=== PATIENT | female | born 1970 | race Caucasian/White ===

== ENCOUNTER → 2023-08-07 18:44 | Outpatient (REF) | payer OTHER, SELFPAY | LOC: WDC 18:44 | PROVIDERS: ATTENDING PHYSICIAN Advanced Practice Midwife; FAMILY PHYSICIAN Nurse Practitioner Family | DX: Z12.31 Encounter for screening mammogram for malignant neoplasm of breast (principal) | CPT/HCPCS: 77063; 77067 ==

== ENCOUNTER → 2024-01-30 06:18 | Day surgery (SDC) | payer OTHER, SELFPAY | LOC: GI 06:18 | PROVIDERS: ATTENDING PHYSICIAN Internal Medicine | DX: Z12.11 Encounter for screening for malignant neoplasm of colon (principal); K57.30 Diverticulosis of large intestine without perforation or abscess without bleeding | CPT/HCPCS: G0121 ==

== ENCOUNTER → 2024-05-18 06:19 | Day surgery (SDC) | payer OTHER, SELFPAY | LOC: GI 06:19 | PROVIDERS: ATTENDING PHYSICIAN Internal Medicine | DX: K22.2 Esophageal obstruction (principal); K31.89 Other diseases of stomach and duodenum; R13.10 Dysphagia, unspecified | CPT/HCPCS: 43249; 43239; 88305; 88342 ==

== ENCOUNTER → 2024-09-02 17:27 | Outpatient (REF) | payer OTHER, SELFPAY | LOC: WDC 17:27 | PROVIDERS: ATTENDING PHYSICIAN Emergency Medicine | DX: Z00.00 Encounter for general adult medical examination without abnormal findings (principal); Z12.31 Encounter for screening mammogram for malignant neoplasm of breast | CPT/HCPCS: 77063; 77067 ==

== ENCOUNTER 2024-10-13 18:35 | Emergency (ER) | payer OTHER, SELFPAY ==
[2024-10-13] VITALS (21 sets, daily range): BP systolic 117–181; BP diastolic 63–105; BMI 34.5
[2024-10-13 19:18] LABS: % Basophils 0.5 % (0-2); % Immature Granulocytes 0.2 % (0-0.5); % Lymphocytes 40.9 % (20.5-51.1); % Monocytes 7.4 % (1.7-9.3); Absolute Eosinophils 0.7 10^3/uL (0-0.7); Absolute Lymphocytes 2.5 10^3/uL (1.2-3.4); Absolute Monocytes 0.5 10^3/uL (0.1-0.6); Absolute Neutrophils 2.4 10^3/uL (1.4-6.5); Hemoglobin 13.4 g/dL (12.0-16.0); Mean Corp Hgb Conc. 34.4 g/dL (33.0-37.0); Mean Corpuscular Volume 87.2 fL (81.0-99.0); Mean Platelet Volume 10.4 fL (7.4-10.4); Nucleated Red Blood Cells % 0 %; Platelet Count 214 10^3/uL (130-400); Red Blood Cell Count 4.47 10^6/uL (4.20-5.40); Red Cell Dist. Width 12.8 % (11.5-14.5); White Blood Cell Count 6.1 10^3/uL (4.8-10.8)
[2024-10-13 19:45] LABS: ALT (SGPT) 33 U/L (0-35); AST (SGOT) 26 U/L (14-36); Albumin 5.1 g/dl (3.5-5.0); Alkaline Phosphatase 97 U/L (38-126); Blood Urea Nitrogen 19 mg/dl (7-17); Calcium 9.9 mg/dl (8.4-10.2); Carbon Dioxide 27 mmol/L (22-30); Chloride 105 mmol/L (98-107); Estimated Creatinine Clearance 101 ml/min; Glucose 122 mg/dl (70-99); Potassium 3.8 mmol/L (3.5-5.1); Sodium 142 mmol/L (135-145); Total Bilirubin 0.6 mg/dl (0.2-1.3); Total Protein 7.6 g/dl (6.3-8.2); eGFR > 60.00
--- NOTE | 2024-10-13 19:56 | ED.GENMED ---
History of Present Illness
General
Chief Complaint: Heart Rate Problem
Source: patient and spouse
Exam Limitations: none
Time Seen by Provider: 10/13/24 18:54
Nursing documentation reviewed up to this point in time: agreed with
History of Present Illness
History of Present Illness:
54-year-old female with past medical history of asthma who presents to the emergency room for evaluation of palpitations. Patient reports that she was doing some housework about an hour prior to arrival when she had onset of palpitations. She says
that she felt her heart racing and checked her pulse and it was apparently 190. She said she felt mildly dizzy but denies any chest pain, shortness of breath. Came to the emergency room for evaluation. She denies any history of heart disease; EKG
on arrival appears to show atrial flutter, patient denies history of atrial fibrillation/atrial flutter. She denies similar symptoms in the past.
Past History
Past History
ED Past Medical History: Asthma and Psychiatric (Anxiety)
ED Past Surgical History: Orthopedic
Social History
Tobacco: Former smoker
Alcohol: None
Drug: None
Living: with family
Employment: Employed
Family History
Family History: Other (no significant)
Review of Systems
Review of Systems
All Other Systems: ROS reviewed and negative except as documented in HPI and ROS
Constitutional: Denies fever
Respiratory: Denies cough or trouble breathing
Cardiac: Reports palpitations; Denies chest pain
ABD/GI: Denies abdominal pain, nausea, vomiting or diarrhea
: Denies flank pain
Musculoskeletal: Denies edema, neck pain or back pain
Neurological: Denies headache
Phy Exam
Physical Exam
Physical Exam:
General: Awake, alert, no acute distress
Head: Normocephalic, atraumatic
Eyes: Conjunctiva normal, pupils equal round and reactive to light bilaterally
Throat: Airway intact, handling secretions
Neck: Trachea midline, no JVD
Lungs: Clear to auscultation bilaterally, no wheezing, rales, rhonchi
Heart: Tachycardia with ostensibly regular rhythm, no murmurs, gallops, or rubs appreciated
Abd: Soft, non distended, nontender
Neuro: No gross deficits
Skin: no rash
Extremities: No edema in extremities, equal pulses in all extremities
Scores
Heart Failure Risk
Heart Failure Risk Score: Not Applicable
Heart Score for Chest Pain Patients
STEMI patient?: Not applicable
Withdrawal Assessment of Alcohol
Withdrawal Assessment Completed?: Not applicable
Course
Orders/Labs/Results
Orders:
Orders
10/13/24 18:37
EKG [Electrocardiogram (*1)] Urgent
Reason for Study: Tachycardia
EKG- Treatment ONCE
10/13/24 19:06
Complete Blood Count/With Diff Urgent
Comprehensive Metabolic Panel Urgent
TSH Reflex To Free T4 Urgent
10/13/24 19:19
Propofol [Diprivan] 20 ml .ROUTE .STK-MED
10/13/24 19:36
ECG [Electrocardiogram (*1)] Urgent
Reason for Study: Bradycardia / Tachycardia
Cardiology Consult: Unknown
EKG- Treatment ONCE
10/13/24 19:49
Metoprolol [Lopressor] 5 mg IV NOW STA
10/13/24 19:50
Troponin I Urgent
10/13/24 20:16
Apixaban [Eliquis] 5 mg PO ONCE ONE
Abnormal Lab Results
10/13/24
19:06
Neutrophils % 39.0 L %
(42.2-75.2)
Eosinophils % 12.0 H %
(0-6)
BUN 19 H mg/dl
(7-17)
Glucose 122 H mg/dl
(70-99)
Albumin 5.1 H g/dl
(3.5-5.0)
10/13/24 19:06
10/13/24 19:06
Vital Signs
Initial and Last Documented VS:
Initial Vital Signs
Temp Pulse Resp BP Pulse Ox
36.4 C 143 18 181/103 100
10/13/24 18:39 10/13/24 18:39 10/13/24 18:39 10/13/24 18:39 10/13/24 18:39
Last Documented Vital Signs
Temp Pulse Resp BP Pulse Ox
37.4 C 95 20 133/78 98
10/13/24 20:00 10/13/24 21:12 10/13/24 21:12 10/13/24 21:12 10/13/24 21:12
Procedures
Cardioversion
Indication:: Other (atrial flutter)
Performed by:: Zurdo Amezquita MD
Synchronized?: Yes
Energy Used: 200 joules
Number of attempts: 1
Successful?: Yes
ASA Risk Score: Class II
Any reaction or bad outcome to prior sedation/anesthesia?: No history of a reaction
Sedation level to be attained: moderate
Chart and allergies reviewed: Yes
Patient reassessed prior to sedation: Yes
Time out completed at (validating right patient & procedure): 19:25
History of difficult intubation: No
Airway free of obstruction: Yes
Patient has a gag reflex: Yes
Patient is able to open mouth: Yes
Patient has no dentures: Yes
Patient has no loose teeth: Yes
Medication administered by Provider during Moderate Sedation: IV Propofol (mg)
Total dose administered: 180
Time drug administered: 19:25
Start Time: 19:25
Stop Time: 19:40
MDM/Problems Addressed
Differential Diagnosis Includes:
Atrial fibrillation, atrial flutter, SVT
MDM/Problems Addressed:
54-year-old female presents with palpitations and tachycardia that started about an hour prior to arrival; no history of similar, denies cardiac history. Arrives to us hypertensive, tachycardic. EKG on arrival shows atrial flutter with 2:1
conduction. Brought back to a room and IV placed labs sent off including a CBC and a CMP, troponin, thyroid studies. Given unclear onset of symptoms patient would be reasonable candidate for elective ED cardioversion�will plan to discuss with
cardiology.
Shortly after initial assessment I was called into the room because patient went into a marked tachycardia with heart rate of 260. Monitor showing what appears to be atrial flutter with one-to-one conduction. Pads applied; discussed with patient
and her . Blood pressure normal but she is quite symptomatic. Decision made to proceed with elective ED cardioversion as documented in procedure note. While equipment was being prepared patient's heart rate returned to 150, a flutter with
2-1 conduction on the monitor. Patient was successfully cardioverted as documented in procedure note. Postprocedural EKG confirms sinus rhythm. Will plan to discuss events with cardiology.
Reviewed EKG and rhythm strips from above episode with cardiology. After review of rhythm strip, consistent with atrial flutter with one-to-one conduction per cardiology. Reasonable to dose with IV Lopressor, initiate anticoagulation and started
on Toprol-XL. If labs including troponin normal reasonable to discharge and follow-up expeditiously as an outpatient. I did have a long discussion with patient�I offered her to be admitted for observation after this episode but she feels
comfortable with outpatient follow-up plan if able.
Labs reviewed: CBC unremarkable, CMP no clinically significant abnormalities. Troponin negative. Thyroid studies normal. Patient remains in sinus rhythm, normotensive, normal heart rate. She is asymptomatic since she has been cardioverted.
Continue to monitor after sedation but if she remains well-appearing with stable vitals plan for discharge as above.
Patient remains in sinus rhythm, heart rate in the 80s, normotensive. She is feeling well after procedure. She feels comfortable going home and following up with cardiology as an outpatient. Spoke about return precautions in detail and all
questions answered. Referred to cardiology for expeditious follow-up via ER chest pain hotline.
Acute Exacerbation and/or Progression of Chronic Illness:
Acutely hypertensive�resolved without intervention, continue to monitor but no additional antihypertensives indicated at present
Acute Exacerbation and/or Progression of Chronic Illness: HTN
*Pulse Oximetry
Patient hypoxic: no
*EKG
Interpreted by ED Provider?: Yes
Heart Rate: 140
Rate: tachycardiac
Rhythm: atrial flutter
[place]: normal axis
Interval: normal interval
QRS Pattern: normal QRS
Ischemia: non-specific ST changes
*Critical Care Note
Total Time (30-74mins, 75-104mins- exclusive of procedures): 33
comment:
Critical care statement: A total of 33 minutes of critical care time was provided for this patient. This includes management of unstable vital signs, evaluation of the patient at bedside, frequent reassessment, discussion with
consultants/hospitalist, and review of pertinent medical records. This time was separate from time utilized to perform any aforementioned documented procedures
Data Reviewed
Review of Other/Old Records Reveals: Records
Source: patient, records and spouse
Patient Management
Discussion with other providers: Sales Exec (Discussed with cardiology)
Escalation/DeEscalation of care consider admission/obs:
Considered admission�using shared decision making discharged with close outpatient follow-up plan
ED Attending Note
-
Portions of this chart may have been created with voice recognition software.� Occasional wrong word or��sound alike� substitutions may have occurred due to the inherent limitations of voice recognition software.
Discharge Plan
Departure
Patient Disposition: Home (Routine Discharge)
Date of Disposition: 10/13/24
Time of Disposition: 21:51
Patient with high blood pressure during this ER visit?: Yes
Discharge Problem:
Atrial flutter
Instructions: Cardioversion - Discharge instructions, Atrial flutter - Discharge instructions, MODERATE SEDATION ADULT, Chest Pain DCA Follow Up
Prescriptions:
New
metoprolol succinate [Toprol XL] 50 mg tablet extended release 24 hr
50 mg PO DAILY Qty: 30 0RF
Eliquis 5 mg tablet
5 mg PO BID Qty: 60 0RF
No Action
albuterol sulfate 1 PUFF HFA aerosol inhaler
2 puff inhalation PRN PRN (Reason: sob)
epinephrine [EpiPen 2-Mohan] 0.3 MG/0.3 ML auto-injector
0.3 mg IJ ONCE PRN (Reason: acute,severe allergic reaction) Qty: 2 0RF
Zyrtec:
10 mg PO DAILY PRN (Reason: allergies)
prednisone 10 MG tablet
10 mg PO .TAPER Qty: 30 0RF
Rx Instructions:
Take 40mg daily x3days, 30mg daily x3days,
20mg daily x3days, 10mg daily x3days.
Referrals:
Velia Brewster MD [Family Provider] -
Toi Lujan MD [Active] - Call in 1-3 days for appt
Activity Restrictions/Additional Instructions:
Thank you for visiting the Emergency Department at [facility].
1. Please schedule a follow up appointment as directed. Call first thing tomorrow morning to make an appointment.
2. If indicated, please take your medications as instructed and indicated on discharge paperwork.
3. If any of your symptoms do not improve, or persist, or become more severe within 6-12 hours, please return to the emergency department for further care.
4. Please return to the emergency department if you develop a headache, neck pain/stiffness, fever greater than 100.4F, chest pain, shortness of breath, persistent nausea, vomiting, slurred speech, difficulty walking, numbness/tingling, weakness,
signs of infection or any other symptoms that are worrisome to you.
Please call [phone] if you have any questions.
Interventions
Interventions:
*Risk Screen - Suicide Last Done: 10/13/24 18:39
*General Assessment Last Done: 10/13/24 18:39
*Neglect/Abuse Screening Last Done: 10/13/24 18:39
*ED- Fall Risk Assessment Last Done: 10/13/24 18:39
*ED COVID-19 Vaccine History Last Done: 10/13/24 18:39
ED- Cardiac Assessment Last Done: 10/13/24 19:11
ED- Pulmonary Assessment Last Done: 10/13/24 19:11
Discharge Date and Time
Print Language: [place]AST [place]
[2024-10-13] MEDS: LOPRESSOR 5 MG IV (20:14)
[2024-10-13 20:27] LABS: TSH Reflex To Free T4 0.89 uIU/ml (0.47-4.68)
[2024-10-13] MEDS: ELIQUIS 5 MG PO (20:40)
== END 2024-10-13 22:30 | disposition home or self-care (01) ==
LOC: EMR 18:35
PROVIDERS: EMERGENCY PHYSICIAN Emergency Medicine; FAMILY PHYSICIAN Emergency Medicine
DX: I48.92 Unspecified atrial flutter (principal); J45.909 Unspecified asthma, uncomplicated; Z87.891 Personal history of nicotine dependence
CPT/HCPCS: 99291; 92960; 96374; 99152; 80053; 84443; 84484; 85025; 93005

== ENCOUNTER → 2024-11-11 16:28 | Outpatient (REF) | payer OTHER, SELFPAY | LOC: RCS 16:28 | PROVIDERS: ATTENDING PHYSICIAN Internal Medicine Cardiovascular Disease; FAMILY PHYSICIAN Nurse Practitioner Family | DX: I48.3 Typical atrial flutter (principal) | CPT/HCPCS: 93306 ==

== ENCOUNTER → 2024-12-22 13:07 | Outpatient (REF) | payer OTHER, SELFPAY | LOC: DHSLP 13:07 | PROVIDERS: ATTENDING PHYSICIAN Internal Medicine Critical Care Medicine; FAMILY PHYSICIAN Nurse Practitioner Family | DX: G47.33 Obstructive sleep apnea (adult) (pediatric) (principal) | CPT/HCPCS: 95800 ==

== ENCOUNTER → 2025-02-09 10:29 | Outpatient (REF) | payer OTHER, SELFPAY | LOC: HWRAD 10:29 | PROVIDERS: ATTENDING PHYSICIAN Internal Medicine Critical Care Medicine; FAMILY PHYSICIAN Emergency Medicine | DX: Z87.891 Personal history of nicotine dependence (principal) | CPT/HCPCS: 71271 ==